=== PATIENT | female | born 1965 ===

== ENCOUNTER 2018-12-11 08:18 | Outpatient (CLI) | payer OTHER | END 2018-12-11 10:00 | disposition home or self-care (01) | LOC: MAMO-SONO 08:18 | DX: Z12.31 Encounter for screening mammogram for malignant neoplasm of breast (principal); Z87.898 Personal history of other specified conditions; N60.11 Diffuse cystic mastopathy of right breast; N60.12 Diffuse cystic mastopathy of left breast ==

== ENCOUNTER 2019-03-23 07:19 | Emergency (ER) | payer OTHER ==
[~2019-03-23] VITALS: Ht 175.3 cm; Wt 88.9 kg
== END 2019-03-23 14:48 | disposition home or self-care (01) ==
LOC: ER 07:19
DX: R10.13 Epigastric pain (principal); R10.11 Right upper quadrant pain

== ENCOUNTER 2019-10-31 08:37 | Outpatient (CLI) | payer OTHER | END 2019-10-31 08:54 | disposition home or self-care (01) | LOC: SONOGRAMA 08:37 | PROVIDERS: ATTEND Pathology Anatomic Pathology & Clinical Pathology | DX: E04.1 Nontoxic single thyroid nodule (principal) ==

== ENCOUNTER 2024-06-11 09:36 | Outpatient (CLI) | payer OTHER | END 2024-06-12 08:43 | disposition home or self-care (01) | LOC: NUCLEAR 09:36 | PROVIDERS: ATTEND Internal Medicine Endocrinology, Diabetes & Metabolism | DX: I50.20 Unspecified systolic (congestive) heart failure (principal) ==